=== PATIENT | female | born 1975 | race Caucasian/White ===

== ENCOUNTER → 2021-01-07 | Outpatient (CLI) | payer OTHER | LOC: EMI 10:55 | DX: G45.4 Transient global amnesia (principal); R94.02 Abnormal brain scan | CPT/HCPCS: 70551 ==

== ENCOUNTER → 2021-09-07 | Outpatient (CLI) | payer OTHER ==
[~2021-09-07] MED LIST: AIMOVIG AU140 MG/1 M INJ; APPLE CIDER VINEGAR PO; AZELASTINE SPRAY; BUTALB-ACETAMI1 EAC1 PO; CLARITIN10 MG PO; DAILY VALUE1 EACH PO; FERROUS SULFAT324 MG PO; HAIR, SKIN & N1 EACH PO; HYDROXYZINE HCL25 MG PO; LEXAPRO20 MG PO; METRONIDAZOLE45 GM TOP; NASACORT SPRAY; NORVASC10 MG PO; NURTEC ODT75 MG PO; OMEPRAZOLE40 MG PO; OZEMPIC INJ; POTASSIUM OTC PO; PROPRANOLOL HCL20 MG PO; PYRIDIUM100 MG PO; VALIUM10 MG VG; VITAMIN D350 MC3 PO; XYZAL5 MG PO; [UNRECOGNIZED DRUG - OTHER] TOP
[2021-09-07 11:06] LABS: HEMOGLOBIN 13.7 gm/dl (12.3-15.3); RED BLOOD COUNT 4.48 M/UL (4.00-5.10); WHITE BLOOD COUNT 8.5 K/UL (4.5-11.0)
[2021-09-07 11:44] LABS: BUN/CREATININE RATIO 35 (0-10)
== END ==
LOC: OPSV2 09:00
PROVIDERS: Obstetrics & Gynecology
DX: Z01.818 Encounter for other preprocedural examination (principal)
CPT/HCPCS: 80053; 81001; 85025; 93005

== ENCOUNTER → 2021-10-05 | Outpatient (CLI) | payer OTHER | LOC: MRI 14:46 | DX: G43.109 Migraine with aura, not intractable, without status migrainosus (principal); R55 Syncope and collapse; R11.2 Nausea with vomiting, unspecified; R90.82 White matter disease, unspecified | CPT/HCPCS: 70553; A9577 ==

== ENCOUNTER → 2021-11-30 | Day surgery (SDC) | payer OTHER ==
[~2021-11-30] VITALS: Ht 160 cm; Wt 72.6 kg
[~2021-11-30] MED LIST changes: +DOCUSATE SODIU250 MG PO; +HYDROCODONE-AC1 EACH PO; +IBUPROFEN600 MG PO; +OMEPRAZOLE20 M1 PO
[2021-11-30 06:55] LABS: HEMOGLOBIN 11.3 gm/dl (12.3-15.3); RED BLOOD COUNT 3.66 M/UL (4.00-5.10); WHITE BLOOD COUNT 9.1 K/UL (4.5-11.0)
[2021-11-30 07:13] LABS: BUN/CREATININE RATIO 23 (0-10)
== END | disposition home or self-care (01) ==
LOC: OR 06:29
PROVIDERS: Obstetrics & Gynecology
DX: R10.2 Pelvic and perineal pain (principal); N94.10 Unspecified dyspareunia; M62.89 Other specified disorders of muscle; N72 Inflammatory disease of cervix uteri; N87.9 Dysplasia of cervix uteri, unspecified; N83.12 Corpus luteum cyst of left ovary; N83.11 Corpus luteum cyst of right ovary; N80.0 Endometriosis of uterus; K66.0 Peritoneal adhesions (postprocedural) (postinfection); E78.5 Hyperlipidemia, unspecified; Z88.0 Allergy status to penicillin; Z88.2 Allergy status to sulfonamides; Z88.5 Allergy status to narcotic agent; Z88.1 Allergy status to other antibiotic agents; Z79.899 Other long term (current) drug therapy
CPT/HCPCS: 36415; 80048; 81001; 84702; 85025; C1769; J1100; J1580; J1885; J2001; J2250; J2405; J2704; J2710; J3010